=== PATIENT | female | born 2000 | race Caucasian/White ===

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

== ENCOUNTER → 2019-02-24 | Outpatient (CLI) | payer OTHER | END | disposition home or self-care (01) | LOC: CFH 16:49 | PROVIDERS: ATTEND Pediatrics | DX: M25.571 Pain in right ankle and joints of right foot (principal) ==

== ENCOUNTER 2020-07-01 00:15 | Emergency (ER) | payer OTHER ==
[~2020-07-01] VITALS: Ht 157.5 cm; Wt 62.0 kg
[2020-07-01 00:18] VITALS: BP 127/82
--- NOTE | 2020-07-01 00:27 | NUR ---
Patient presents to ER c/o an asthma attack around 2330. Patient states she has an inhaler which was not working. Patient c/o SOB, wheezing, cough, and DANIELS. Patient appears anxious. Respirations even and unlabored. No expiratory wheezes noted.
--- NOTE | 2020-07-01 01:15 | NUR ---
PT RESTING COMFORTABLY. NO ACUTE DISTRESS NOR RESPIRATORY DISTRESS. WAITING FOR CXRY TO BE READ.
--- NOTE | 2020-07-01 02:12 | NUR ---
F/U AND D/C INSTRUCTIONS PROVIDED TO PT AND SHE V/U. PT IN NO ACUTE DISTRESS, AND NO RESPIRATORY DISTRESS. AMBULATED AND D/C'D WITHOUT INCIDENT.
== END 2020-07-01 02:13 | disposition home or self-care (01) ==
LOC: ED 00:45
DX: J45.31 Mild persistent asthma with (acute) exacerbation (principal); F41.1 Generalized anxiety disorder; R07.9 Chest pain, unspecified; Z88.1 Allergy status to other antibiotic agents; Z88.6 Allergy status to analgesic agent
CPT/HCPCS: 71045; 99283